=== PATIENT | female | born 1970 | race Caucasian/White ===

== ENCOUNTER → 2017-01-06 | Outpatient (CLI) | payer OTHER ==
[~2017-01-06] MED LIST: BENADRYL 25MG C25 MG PO; COLACE 100MG C100 MG PO; IBUPROFEN600 MG PO; NEURONTIN 300300 MG PO; NORCO 7.5-3251 EACH PO
[2017-01-06 10:57] LABS: HEMOGLOBIN 13.9 gm/dl (12.3-15.3); RED BLOOD COUNT 4.29 M/UL (4.00-5.10); WHITE BLOOD COUNT 8.4 K/UL (4.5-11.0)
== END ==
LOC: OPSV2 08:00
PROVIDERS: Obstetrics & Gynecology
DX: Z01.812 Encounter for preprocedural laboratory examination (principal); D25.9 Leiomyoma of uterus, unspecified; Z88.8 Allergy status to other drugs, medicaments and biological substances
CPT/HCPCS: 36415; 81001; 85025

== ENCOUNTER 2017-01-19 07:14 | Day surgery (SDC) | payer OTHER ==
[~2017-01-19] VITALS: Ht 157.5 cm; Wt 64.9 kg
[2017-01-19] MEDS ORDERED: NEURONTIN 300300 MG PO (08:17)
[2017-01-19] MEDS ORDERED: BENADRYL 25MG C25 MG PO (08:18)
[2017-01-20 05:56] LABS: HEMOGLOBIN 12.3 gm/dl (12.3-15.3)
[2017-01-20] MEDS ORDERED: NORCO 7.5-3251 EACH PO (07:51)
[2017-01-20] MEDS ORDERED: COLACE 100MG C100 MG PO (07:51)
[2017-01-20] MEDS ORDERED: IBUPROFEN600 MG PO (07:51)
== END 2017-01-20 08:10 | disposition home or self-care (01) ==
LOC: OR 07:14 → MED SURG 4 07:14 → OR 07:30 → MED SURG 4 13:45 → OR 01-20 08:10
PROVIDERS: Obstetrics & Gynecology
PROC: 0UT14ZZ Resection of Left Ovary, Percutaneous Endoscopic Approach (ICD-10-PCS; 2017-01-19)
PROC: 0UT74ZZ Resection of Bilateral Fallopian Tubes, Percutaneous Endoscopic Approach (ICD-10-PCS; 2017-01-19)
PROC: 0UT94ZZ Resection of Uterus, Percutaneous Endoscopic Approach (ICD-10-PCS; principal; 2017-01-19 09:35)
PROC: 0UTC4ZZ Resection of Cervix, Percutaneous Endoscopic Approach (ICD-10-PCS; 2017-01-19 09:35)
DX: D25.9 Leiomyoma of uterus, unspecified (principal); N72 Inflammatory disease of cervix uteri; N87.9 Dysplasia of cervix uteri, unspecified; N83.8 Other noninflammatory disorders of ovary, fallopian tube and broad ligament; F17.210 Nicotine dependence, cigarettes, uncomplicated; G43.909 Migraine, unspecified, not intractable, without status migrainosus; N83.12 Corpus luteum cyst of left ovary; Z79.891 Long term (current) use of opiate analgesic; Z79.899 Other long term (current) drug therapy; Z88.8 Allergy status to other drugs, medicaments and biological substances; Z83.49 Family history of other endocrine, nutritional and metabolic diseases; Z82.49 Family history of ischemic heart disease and other diseases of the circulatory system; Z83.3 Family history of diabetes mellitus
CPT/HCPCS: 36415; 84703; 85014; 85018; J0690; J1100; J2250; J2405; J2550; J2710; J2795; J3010; J7120

== ENCOUNTER → 2021-12-20 | Day surgery (SDC) | payer OTHER ==
[~2021-12-20] VITALS: Ht 157.5 cm; Wt 63.0 kg
[~2021-12-20] MED LIST changes: +ALORA1 EAC1 TD; +ASPIRIN EC81 MG PO; +BUPROPION HCL100 MG PO; +COZAAR50 MG PO; +ESCITALOPRAM OX20 MG PO; +ESTRADIOL1 EAC6 TD; +FLONASE 0.05% N16 GM; +FLUTICASONE SPRAY; +GABAPENTIN800 MG PO; +LABETALOL HCL100 MG PO; +LEVOCETIRIZINE D5 MG PO; +LEXAPRO20 MG PO; +LISINOPRIL10 MG PO; +NITROGLYCERIN0.4 MG SL; +OMEPRAZOLE20 MG PO; +OMEPRAZOLE40 MG PO; +OXYCODONE-ACET1 EACH PO; +PHENERGAN 25 MG25 M1 PO; +PRENATAL VITAMIN PO; +PROGESTERONE100 MG PO; +TRANDATE 100 M100 MG PO; +TRIAMTERENE-HC1 EAC1 PO; +ZOCOR40 MG PO; +ZOFRAN ODT 4 MG4 MG PO
== END | disposition home or self-care (01) ==
LOC: OR 05:23
DX: M65.341 Trigger finger, right ring finger (principal); M65.331 Trigger finger, right middle finger; I10 Essential (primary) hypertension; K21.9 Gastro-esophageal reflux disease without esophagitis; F41.8 Other specified anxiety disorders; F11.20 Opioid dependence, uncomplicated; F12.980 Cannabis use, unspecified with anxiety disorder; Z20.822 Contact with and (suspected) exposure to COVID-19; Z90.710 Acquired absence of both cervix and uterus; Z72.0 Tobacco use
CPT/HCPCS: J0690; J1100; J1170; J2001; J2250; J2405; J2704; J7120

== ENCOUNTER 2022-01-01 09:49 | Emergency (ER) | payer OTHER ==
[~2022-01-01 09:49] MED LIST changes: -FLUTICASONE SPRAY; -LABETALOL HCL100 MG PO
[2022-01-01] MEDS ORDERED: ENDOCET 5-3251 EACH PO (10:10)
[2022-01-02] MEDS ORDERED: LABETALOL HCL100 MG PO (08:00)
[2022-01-02] MEDS ORDERED: FLONASE 0.05% N16 GM (13:09)
[2022-01-02] MEDS ORDERED: MIRALAX17 GM PO (16:50)
[2022-01-02] MEDS ORDERED: LO-DOSE ASPIRIN81 MG PO (16:52)
[2022-01-02] MEDS ORDERED: PROAIR HFA8.5 GM INH (16:54)
[2022-01-02] MEDS ORDERED: COMBIVENT RESPIM4 GM INH (16:55)
[2022-01-02] MEDS ORDERED: CEPHALEXIN500 MG PO (17:02)
[2022-01-02] MEDS ORDERED: SULFAMETHOXAZO1 EACH PO (17:03)
[2022-01-02] MEDS ORDERED: PROTONIX20 MG PO (17:04)
== END 2022-01-01 10:54 | disposition home or self-care (01) ==
LOC: ER1 09:49
DX: T81.40XA Infection following a procedure, unspecified, initial encounter (principal); L08.9 Local infection of the skin and subcutaneous tissue, unspecified; K21.9 Gastro-esophageal reflux disease without esophagitis; I10 Essential (primary) hypertension; Z90.710 Acquired absence of both cervix and uterus
CPT/HCPCS: 96372; 99283; J2270

== ENCOUNTER 2022-01-02 12:24 | Inpatient (IN) | payer OTHER ==
[~2022-01-02] VITALS: Ht 157.5 cm; Wt 62.6 kg
[~2022-01-02 12:24] MED LIST changes: +ENDOCET 5-3251 EACH PO; +LABETALOL HCL100 MG PO
[2022-01-02 12:58] LABS: HEMOGLOBIN 12.7 gm/dl (12.3-15.3); RED BLOOD COUNT 4.13 M/UL (4.00-5.10); WHITE BLOOD COUNT 7.3 K/UL (4.5-11.0)
[2022-01-02] MEDS ORDERED: FLONASE 0.05% N16 GM (13:09)
[2022-01-02 13:14] LABS: BUN/CREATININE RATIO 12 (0-10)
[2022-01-02] MEDS ORDERED: MIRALAX17 GM PO (16:50)
[2022-01-02] MEDS ORDERED: LO-DOSE ASPIRIN81 MG PO (16:52)
[2022-01-02] MEDS ORDERED: PROAIR HFA8.5 GM INH (16:54)
[2022-01-02] MEDS ORDERED: COMBIVENT RESPIM4 GM INH (16:55)
[2022-01-02] MEDS ORDERED: CEPHALEXIN500 MG PO (17:02)
[2022-01-02] MEDS ORDERED: SULFAMETHOXAZO1 EACH PO (17:03)
[2022-01-02] MEDS ORDERED: PROTONIX20 MG PO (17:04)
[2022-01-03 06:00] LABS: HEMOGLOBIN 12.1 gm/dl (12.3-15.3); RED BLOOD COUNT 3.92 M/UL (4.00-5.10)
[2022-01-03 06:22] LABS: BUN/CREATININE RATIO 24 (0-10)
[2022-01-03 06:24] LABS: WHITE BLOOD COUNT 4.7 K/UL (4.5-11.0)
--- NOTE | 2022-01-03 13:34 | NUR ---
RECEIVED PATIENT FROM PACU VIA STRETCHER. ASLEEP. AROUSES TO VERBAL STIMULI. VS WNL. O2 AT 3L NC INTACT. O2 SAT 99. RIGHT HAND SURGICAL DRESSING INTACT. NO DISTRESS NOTED. WCTM.
--- NOTE | 2022-01-03 15:02 | NUR ---
PATIENT GOING OFF THE FLOOR TO VEHICLE. ADVISED PATIENT TO STAY ON FLOOR. PATIENT STATED SHE WOULD MEET HER BOYFRIEND DOWNSTAIRS AND BE BACK TO FLOOR.
[2022-01-04 03:17] LABS: BUN/CREATININE RATIO 20 (0-10)
[2022-01-04] MEDS ORDERED: BACTRIM DS TAB1 EACH PO (13:47)
[2022-01-04] MEDS ORDERED: PERCOCET 10-321 EACH PO ×3 (13:47→14:08)
[2022-01-04] MEDS ORDERED: CLEOCIN HCL300 MG PO (16:13)
[2022-01-04] MEDS ORDERED: LACTINEX TABLET1 EA PO (16:30)
== END 2022-01-04 17:12 | disposition home or self-care (01) | DRG 863 ==
LOC: ER1 12:24 → M/S 14:54 → CDU 14:54 → M/S 18:20
PROVIDERS: Orthopaedic Surgery; Physician Assistant; Physician Assistant Medical; ADMIT Family Medicine
PROC: 0J9J0ZZ Drainage of Right Hand Subcutaneous Tissue and Fascia, Open Approach (ICD-10-PCS; principal; 2022-01-03 12:06)
DX: T81.41XA Infection following a procedure, superficial incisional surgical site, initial encounter (principal); J96.10 Chronic respiratory failure, unspecified whether with hypoxia or hypercapnia; Z20.822 Contact with and (suspected) exposure to COVID-19; Y83.8 Other surgical procedures as the cause of abnormal reaction of the patient, or of later complication, without mention of misadventure at the time of the procedure; I10 Essential (primary) hypertension; F41.9 Anxiety disorder, unspecified; F43.9 Reaction to severe stress, unspecified; F41.0 Panic disorder [episodic paroxysmal anxiety]; F17.210 Nicotine dependence, cigarettes, uncomplicated; F32.A Depression, unspecified; J44.9 Chronic obstructive pulmonary disease, unspecified; M65.141 Other infective (teno)synovitis, right hand; K21.9 Gastro-esophageal reflux disease without esophagitis; F10.10 Alcohol abuse, uncomplicated; E78.5 Hyperlipidemia, unspecified; B95.7 Other staphylococcus as the cause of diseases classified elsewhere; Z79.01 Long term (current) use of anticoagulants; Z79.82 Long term (current) use of aspirin; Z98.890 Other specified postprocedural states; Z90.710 Acquired absence of both cervix and uterus; Z88.5 Allergy status to narcotic agent; Z88.6 Allergy status to analgesic agent
CPT/HCPCS: 36415; 73200; 80048; 80053; 80202; 83735; 85025; 85027; 85652; 86140; 87040; 87070; 87077; 87186; 87205; 94760; 96374; 96375; 99284; J1100; J1170; J2001; J2250; J2270; J2405; J2543; J2704; J3370; J7030; J7070; J7120; U0002

== ENCOUNTER 2022-01-25 11:54 | Emergency (ER) | payer OTHER ==
[~2022-01-25 11:54] MED LIST changes: +BACTRIM DS TAB1 EACH PO; +CEPHALEXIN500 MG PO; +CLEOCIN HCL300 MG PO; +COMBIVENT RESPIM4 GM INH; +LACTINEX TABLET1 EA PO; +LO-DOSE ASPIRIN81 MG PO; +MIRALAX17 GM PO; +PERCOCET 10-321 EACH PO; +PROAIR HFA8.5 GM INH; +PROTONIX20 MG PO; +SULFAMETHOXAZO1 EACH PO
== END 2022-01-25 12:49 | disposition home or self-care (01) ==
LOC: ER1 11:54
DX: T81.49XA Infection following a procedure, other surgical site, initial encounter (principal); I10 Essential (primary) hypertension; J44.9 Chronic obstructive pulmonary disease, unspecified; K21.9 Gastro-esophageal reflux disease without esophagitis; F17.210 Nicotine dependence, cigarettes, uncomplicated; Z88.6 Allergy status to analgesic agent; Z88.5 Allergy status to narcotic agent
CPT/HCPCS: 99282